=== PATIENT | female | born 1985 | race Caucasian/White ===

== ENCOUNTER 2016-12-26 17:18 | Emergency (ER) | payer OTHER ==
[~2016-12-26] VITALS: Ht 170.2 cm; Wt 84.0 kg
[2016-12-26] MEDS ORDERED: DOXY50CA2 PO (17:23)
[2016-12-26] MEDS ORDERED: KETOROLAC 60MG/2ML VIAL IM ONE (19:00)
[2016-12-26] MEDS ORDERED: MORPHINE SULFATE 10 MG/ML CPJ IM ONE (23:00)
[2016-12-27 01:40] VITALS: BP 105/64
== END 2016-12-27 02:22 | disposition home or self-care (01) ==
LOC: ER 17:19
DX: R07.81 Pleurodynia (principal); M54.9 Dorsalgia, unspecified; Z98.890 Other specified postprocedural states
CPT/HCPCS: 71111; 74176; 81025; 96372; 99284; J1885; J2270; Z7610